=== PATIENT | female | born 1975 | race Two or more races ===

== ENCOUNTER 2022-01-20 16:27 | Emergency (ER) | payer SELFPAY | END 2022-01-20 17:50 | disposition left against medical advice (07) | LOC: ER 16:27 | DX: J02.9 Acute pharyngitis, unspecified (principal); Z53.21 Procedure and treatment not carried out due to patient leaving prior to being seen by health care provider ==

== ENCOUNTER 2022-05-10 09:23 | Emergency (ER) | payer MEDICAID, OTHER ==
[~2022-05-10] VITALS: Ht 167.6 cm; Wt 129.4 kg
[2022-05-10 09:58] VITALS: BP 133/83
[2022-05-10] MEDS ORDERED: HYDROcodone-ACET 10/325MG TAB PO ONE (10:30)
[2022-05-10] MEDS ORDERED: HYDR-4902 PO ×3 (10:52→12:11)
== END 2022-05-10 10:58 | disposition home or self-care (01) ==
LOC: ER 09:23
DX: M54.12 Radiculopathy, cervical region (principal)
CPT/HCPCS: 93005